=== PATIENT | female | born 1995 | race Caucasian/White ===

== ENCOUNTER 2023-04-05 10:54 | Outpatient (CLI) | payer BC, SELFPAY | END 2023-04-05 10:55 | disposition home or self-care (01) | PROVIDERS: Visit Provider Obstetrics & Gynecology | DX: Z36.89 Encounter for other specified antenatal screening (principal); O36.0130 Maternal care for anti-D [Rh] antibodies, third trimester, not applicable or unspecified; Z3A.00 Weeks of gestation of pregnancy not specified | CPT/HCPCS: 36415; 86850; 86900; 86901 ==

== ENCOUNTER 2023-08-03 10:53 | Outpatient (CLI) | payer BC, SELFPAY ==
[2023-08-03 12:24] LABS: Hemoglobin 11.5 g/dL (12.0-15.0); Mean Corpuscular HGB Conc 31.1 g/dl (32-36); Mean Corpuscular Hemoglobin 27.2 pg (26-34); Mean Corpuscular Volume 87.5 fl (80-100); Mean Platelet Volume 9.4 fl (7.4-10.4); Platelet Count Result 205 k/mm3 (150-375); Red Blood Count 4.23 M/mm3 (4.2-5.4); Red Cell Distribution Width 14.2 % (11.5-14.5); White Blood Count 5.7 K/mm3 (4.5-10.0)
[2023-08-03 14:09] LABS: Rapid Plasma Reagin Reactive (NonReactive)
[2023-08-06 16:07] LABS: Treponema pallidum Ab FTA ABS Nonreactive (Nonreactive)
[2023-08-23 13:01] LABS: Reference Lab Test Result Reactive
== END 2023-08-03 10:54 | disposition home or self-care (01) ==
PROVIDERS: Visit Provider Obstetrics & Gynecology
DX: Z34.93 Encounter for supervision of normal pregnancy, unspecified, third trimester (principal); Z3A.00 Weeks of gestation of pregnancy not specified
CPT/HCPCS: 36415; 85027; 86592; 86593; 86780; 86850; 86900; 86901

== ENCOUNTER 2023-08-04 05:33 | Inpatient (IN) | payer BC, SELFPAY ==
[2023-08-04] VITALS (50 sets, daily range): BP systolic 94–124; BP diastolic 49–76; PULSE 48–86; RESP 12–18; TEMP 36.3–36.6; O2SAT 98–100; BMI 38.5
[2023-08-04] MEDS: LACTATED RINGERS 1,000 ML 125 ML IV CONT ×2 (06:02→06:55)
--- NOTE | 2023-08-04 06:26 | LDADM ---
This patient, Megan He, was admitted to Labor/Delivery/Recovery 120 on 08/04/23 at 05:33. Plans for labor, pain management and were discussed with patient. Patient/family oriented to hospital policies and general routines including ID bracelet, bed and alarms, visiting hours, pain management, procedures, bathroom and other care routines, personal items, smoking policy, room service/diet and guest tray routines, security routines, and visiting hours. Patient/Family are encouraged to report perceived risks to care and to ask questions if they do not understand what they are told or what they should do. See OBIX for further documentation.
--- NOTE | 2023-08-04 07:08 | WPDANESEPPF ---
Anes - Initial Pre Proc Eval Procedure: Operation Date: 08/04/23 07:30 Proposed Procedures p Repeat Section - Thalia De La Cruz MD Date/Time: 08/04/23 07:08 Surgeon: Thalia De La Cruz MD Pre Op Diagnosis: C/S Patient Data Age: 28 Gender: F Height: 1.57 m Weight: 95.5 kg Last Vital Signs Pulse 69 08/04/23 07:06 BP 122/69 08/04/23 07:06 O2 Del Method Room Air 08/04/23 06:23 Allergies Allergy/AdvReac Type Severity Reaction Status Date / Time latex Allergy Blister Verified 08/04/23 06:05 morphine Allergy Blister Verified 08/04/23 06:04 Patient hx anesthesia problems: none Family hx anesthesia problems: none Results Review: All pre-operative results and documents have been reviewed as part of the pre-operative evaluation. [facility] Past Medical History Medical History (Updated 08/04/23 @ 07:09 by Guy Pickering MD) Breech presentation Latex allergy Obesity Surgical History Surgical History (Updated 08/04/23 @ 07:09 by Guy Pickering MD) History of section Hx of tonsillectomy Social History Social History Smoking status: Former smoker Tobacco type: cigarettes and e-cigarettes/vaping Substance use: never Lack of Transportation: No Lack of Food: Never True Current Housing: I Have Housing Concerned About Future Housing: No Difficulty Paying Gas/Electric Bills: No Difficulty Paying for Meds: No Currently Unemployed: No Education: High School Diploma/GED Difficulty w/ Childcare or Family Care: No Spiritual care concerns: No Anes - Eval Final PreProcedure Day of Procedure 08/04/23 07:08 Patient weight: obese Heart: regular rate and rhythm Lungs: clear to auscultation Airway: Mallampati scale class II Neurological: alert and oriented Last oral intake: >/= 8 hours ASA classification: II Emergent: no Anesthetic plan: proceed Anesthesia type and monitoring: regional spinal and standard monitoring Results Review: All pre-operative results and documents have been reviewed as part of the pre-operative evaluation. Informed Consent: The patient's anesthetic plan of spinal with no morphine and its attendant risks and benefits were discussed with the patient/family/POA. Questions were solicited and answers provided to the satisfaction of the patient/family/POA.
--- NOTE | 2023-08-04 07:23 | PM.IMHP ---
H&P: HPI History of Present Illness Date/Time: 08/04/23 07:23 Chief Complaint: Term , previous Narrative: this patient is a 28-year-old multipara at term with a previous . We have agreed to perform repeat . She understands there is risk to the procedure. She understands the procedure in detail. She understands there is injury risk and injuries can result in hospitalization, more surgery, severe illness. She understands risk of hemorrhage and infection. She denies any nausea, vomiting, fever, chills. She denies any chest pain shortness of breath. She denies any contractions, loss of fluid, vaginal bleeding. Review of Systems Review of Systems: All systems reviewed & are unremarkable except as noted in HPI and below Constitutional: Constitutional: Denies chills, Denies fatigue, Denies fever(s) and Denies weakness Eyes: Eyes: Denies blurry vision, Denies change in vision, Denies loss of peripheral vision, Denies loss of vision, Denies other visual disturbances and Denies eye pain ENT: Denies vertigo, Denies dizziness, Denies hearing loss, Denies mouth pain, Denies nasal obstruction, Denies neck mass and Denies neck pain Cardiovascular: Cardiovascular: Denies chest pain, Denies diaphoresis, Denies syncope, Denies leg edema and Denies dyspnea Respiratory: Respiratory: Denies chest congestion, Denies cough, Denies hemoptysis, Denies dyspnea and Denies wheezing Gastrointestinal: Gastrointestinal: Denies abdominal pain, Denies constipation, Denies diarrhea, Denies nausea and Denies vomiting Genitourinary: Genitourinary: Denies hematuria, Denies change in libido, Denies nocturia, Denies genital lesions, Denies flank pain and Denies urinary urgency Musculoskeletal: Musculoskeletal: Denies abnormal gait, Denies back pain, Denies myalgias, Denies arthralgias, Denies joint swelling, Denies muscle weakness and Denies neck pain Integumentary/Breasts: Skin/Breast: Denies swelling, Denies breast pain, Denies breast mass, Denies dry skin, Denies nipple discharge, Denies unusual bruising and Denies jaundice Neurologic: Denies Neuro-related abnormal movements, Denies Abnormal speech present, Denies abnormal gait, Denies behavioral changes, Denies confusion, Denies vertigo, Denies dizziness, Denies syncope, Denies loss of vision, Denies memory loss, Denies convulsions and Denies weakness Psychiatric: Psychiatric: Denies abnormal sleep pattern, Denies behavioral changes, Denies change in libido, Denies confusion, Denies depression, Denies anhedonia and Denies memory loss Endocrine: Endocrine: Reports no additional endocrine complaints, Denies change in libido and Denies fatigue Hematologic/Lymphatic: Hematologic/Lymphatic: Reports no additional hematologic/lymphatic complaints Allergic/Immunologic: Allergic/Immunologic: Reports no additional allergic/immunologic complaints and Denies wheezing PMFSH Past Medical History Medical History (Updated 08/04/23 @ 07:25 by Thalia De La Cruz MD) Breech presentation Latex allergy Obesity Surgical History Surgical History (Updated 08/04/23 @ 07:25 by Thalia De La Cruz MD) History of section Hx of tonsillectomy Social History Social History Smoking status: Former smoker Tobacco type: cigarettes and e-cigarettes/vaping Substance use: never Lack of Transportation: No Lack of Food: Never True Current Housing: I Have Housing Concerned About Future Housing: No Difficulty Paying Gas/Electric Bills: No Difficulty Paying for Meds: No Currently Unemployed: No Education: High School Diploma/GED Difficulty w/ Childcare or Family Care: No Spiritual care concerns: No Meds Home Medications and Allergies Allergies Allergy/AdvReac Type Severity Reaction Status Date / Time latex Allergy Blister Verified 08/04/23 06:05 morphine Allergy Blister Verified 08/04/23 06:04 Vital Signs Vit
--- NOTE | 2023-08-04 07:27 | WPDHPUPDATE1 ---
History and Physical Update Update Date/Time: 08/04/23 07:27 History and Physical has been reviewed, including an updated exam of the patient. There are NO changes in the patient's condition. Risks, benefits, and alternatives have been discussed and questions answered. Patient agrees to proceed with procedure.
[2023-08-04] MEDS: ceFAZolin 2 GM/D5W 50 ML 2 GM/50 ML BAG IVPB (07:30)
[2023-08-04] MEDS: ONDANSETRON INJ 4 MG/2 ML VIAL IV PUSH (07:50)
--- NOTE | 2023-08-04 09:26 | W.PM.PROC2 ---
Procedure Note - Detailed Date of Procedure 08/04/23 Pre-op Diagnosis Previous C/S Post-op Diagnosis Same Procedure Performed Low-transverse section Surgeon Thalia De La Cruz MD Anesthesia Spinal Findings Normal gestational maternal anatomy, average size infant, normal Apgars. Description of Procedure The patient was taken the operating room. She was prepped and draped in dorsal supine position with a leftward tilt. This was done after spinal anesthetic was applied. A low-transverse skin incision was made and carried down till of the fascia with the knife. The fascial incision was made with the knife. The fascial incision was extended laterally with López scissors. The fascia was tented upward superiorly and inferiorly the rectus muscles were dissected off bluntly. The rectus muscles were the midline. The preperitoneal fat and peritoneum were dissected open bluntly at the superior aspect of the rectus muscles. The peritoneal incision was extended superior and inferior with good position of bladder. The uterine incision was made with a scalpel down to the level of the amniotic cavity. The amniotic cavity was entered bluntly. The was delivered. The cord was clamped and cut and the infant was handed off to waiting pediatric staff. Cord bloods were obtained. The placenta was removed manually. The uterus was exteriorized. The uterus was cleared of all clots, debris and membranes. The uterus was closed in 0 Vicryl running lock fashion. An imbricating over a was placed along the incision line as well. The uterus was returned to the abdomen. The gutters were cleared of all clots and debris. The fascia was closed with 0 Vicryl running fashion. The subcutaneous tissue was irrigated pinpoint bleeders were cauterized. The skin was closed with subcuticular absorbable dorothy. The skin incision line was covered with glue. The patient tolerated the procedure well. She has taken recovery room in stable condition. Sponge lap and needle counts were correct x2. Estimated Blood Loss -895.0 Urine Output -150.0 Complications No immediate complications Condition Stable Disposition PACU
[2023-08-04] MEDS: OXYTOCIN 30 UNITS/NS 500 ML 30 UNITS/500 ML BAG 125 UNITS IV CONT (09:34)
[2023-08-04] MEDS: fentaNYL CITRATE INJ (*CRX) 100 MCG/2 ML VIAL 25 MCG IV PUSH ×3 (10:01→11:01)
[2023-08-04] MEDS: LIDOCAINE 5% PATCH 1 PATCH TRANSDERM (10:15)
[2023-08-04] MEDS: HYDROcodone/acetaminophen (*CRX) 10-325 MG TABLET 1 TAB PO ×2 (11:49→17:44)
[2023-08-04] MEDS: FENTANYL 600MCG/NS30MLPCA(*CRX 600 MCG/30 ML PCA.VIAL IV CONT (12:13)
[2023-08-04] MEDS: DEXTROSE 5%/0.45% SOD CHL 1,000 ML 125 ML IV CONT (12:24)
[2023-08-04] MEDS: KETOROLAC 30 MG/ML VIAL (*BKC) IV PUSH ×2 (12:24→19:00)
--- NOTE | 2023-08-04 14:56 | PC.NURSE ---
1205 PT's mother called to unit and demanded to talk to charge nurse. She aggressively spoke to this RN and telling her daughter is in pain and we are not doing anything. This RN told her that i have her pain meds in my hand and was on the way to her room. She raised her voice and tells she is not playing that game, and continue talking aggressively. This RN told her to let me go take care of her. She threatens that we have 10 min to take care of her pain and hang up. She also called 2nd floor field secretary and veterinary assistant with aggressive manner and made threatening comment to come to the hospital. This RN went to PT room and started ASSISTANT PRESS OPERATOR OFFSET, also told her mother called to desk. Pt was very upset and states she told her mother not to call because we just gave pain medication pill. Pt was very apologetic and understands we were trying to take care of her pain
[2023-08-04] MEDS: DOCUSATE SODIUM 100 MG CAPSULE PO (19:00)
[2023-08-04] MEDS: POLYSACCHARIDE IRON COMPLEX 150 MG CAPSULE PO (19:00)
[2023-08-04] MEDS: KCL 20 MEQ/D5/0.45% SOD CHL 1,000 ML 125 ML IV CONT (21:00)
[2023-08-05 00:12] VITALS: RESP 16
[2023-08-05] MEDS: HYDROcodone/acetaminophen (*CRX) 10-325 MG TABLET 1 TAB PO ×6 (00:13→21:14)
[2023-08-05] MEDS: KETOROLAC 30 MG/ML VIAL (*BKC) IV PUSH (01:18)
--- NOTE | 2023-08-05 01:59 | OBPPTRN ---
08/04/2023 at 2323 Patient in wheelchair transferred to post room #291. Support person present. Patient and her significant other oriented to unit, room, information board, rooming in, admission packet and security measures. Patient and her significant other verbalizes understanding.
[2023-08-05] MEDS: SIMETHICONE 80 MG TAB.CHEW PO ×3 (03:33→21:14)
[2023-08-05 03:45] VITALS: BP 104/66; PULSE 80; RESP 16; TEMP 36.6
[2023-08-05 05:19] LABS: Basophils Percent Auto 0.3 % (0.2-1.2); Eosinophils Percent Auto 0.5 % (0-4.4); Hematocrit 30.9 % (37.0-47.0); Hemoglobin 9.6 g/dL (12.0-15.0); Immature Granulocyte Absolute 0.05 K/mm3 (0.00-0.031); Immature Granulocyte Percent A 0.6 % (0-0.5); Lymphocytes Absolute Auto 0.98 K/mm3 (0.9-3.2); Lymphocytes Percent Auto 12.3 % (18.3-44.2); Mean Corpuscular HGB Conc 31.1 g/dl (32-36); Mean Corpuscular Hemoglobin 27.3 pg (26-34); Mean Corpuscular Volume 87.8 fl (80-100); Mean Platelet Volume 9.2 fl (7.4-10.4); Monocytes Absolute Auto 0.5 K/mm3 (0.1-0.6); Monocytes Percent Auto 5.9 % (2.6-8.5); Neutrophils Absolute Auto 6.4 K/mm3 (1.3-6.7); Neutrophils Percent Auto 80.4 % (45.5-73.1); Platelet Count Result 174 k/mm3 (150-375); Red Blood Count 3.52 M/mm3 (4.2-5.4); Red Cell Distribution Width 14.5 % (11.5-14.5)
[2023-08-05 07:20] VITALS: BP 116/69; PULSE 72; RESP 18; TEMP 36.9; O2SAT 99
[2023-08-05] MEDS: POLYSACCHARIDE IRON COMPLEX 150 MG CAPSULE PO ×2 (07:54→17:24)
[2023-08-05] MEDS: DOCUSATE SODIUM 100 MG CAPSULE PO ×2 (07:54→17:25)
[2023-08-05] MEDS: MULTIVIT/MIN/PREN/FOL AC/IRON TABLET 1 TAB PO (07:55)
[2023-08-05] MEDS: IBUPROFEN 600 MG TABLET PO ×2 (07:56→17:25)
--- NOTE | 2023-08-05 11:21 | WPDANLDPN2 ---
Anes-Prog Note L&D Date/Time: 08/05/23 11:21 Comfortable throughout: section Neuraxial method: spinal Epidural/Spinal procedure site: clean & non-tender Neuro status: Neuro function grossly intact. Cardiovascular status: normal Respiratory status: normal Airway patency: baseline Mental status: baseline Post-Op hydration status: normal Vital Signs: Last Vital Signs Temp 98 F 08/05/23 03:45 Pulse 80 08/05/23 03:45 Resp 16 08/05/23 03:45 BP 104/66 08/05/23 03:45 Pulse Ox 98 08/04/23 23:25 O2 Del Method Room Air 08/05/23 07:56 Pain score (VAS): 2 I/O: Intake & Output 08/04/23 08/05/23 08/05/23 23:59 07:59 15:59 Intake Total 800 Output Total 1600 700 Balance -1600 100 Post-procedural complaints: pruritis mild, no treatment Patient feedback: Patient satisfied with anesthetic care.
--- NOTE | 2023-08-05 11:21 | WPDANLDNPN2 ---
Anes-Prog Note L&D-Neuraxial Date/Time: 08/05/23 11:21 Neuraxial medications: intrathecal PF morphine Opiod-related complaints: pruritis mild, no treatment Patient feedback: Patient satisfied with post-operative pain management.
[2023-08-05] MEDS: LIDOCAINE 5% PATCH 1 PATCH TRANSDERM (12:01)
--- NOTE | 2023-08-05 12:53 | P.PNOB_ITS ---
OB - PN: Subj Subjective Date/time seen: 08/05/23 12:53 OB - PN: Obj Data Labs 08/05/23 04:59 Labs: Laboratory Results - last 24 hr 08/05/23 04:59 WBC 8.0 RBC 3.52 L Hgb 9.6 L Hct 30.9 L MCV 87.8 MCH 27.3 MCHC 31.1 L RDW 14.5 Plt Count 174 MPV 9.2 Immature Gran % (Auto) 0.6 H Neut % (Auto) 80.4 H Lymph % (Auto) 12.3 L [place] % (Auto) 5.9 Eos % (Auto) 0.5 Baso % (Auto) 0.3 Lymph # (Auto) 0.98 [place] # (Auto) 0.5 Eos # (Auto) 0.0 Baso # (Auto) 0.0 Abs Immat Gran (auto) 0.05 H Absolute Neuts (auto) 6.4 Absolute Nucleated RBC 0.0 Nucleated RBC % 0.0 OB - PN A/P Time Spent With Patient Time: Total time spent is greater than 50% in coordination of care (as documented) at patient's floor/unit and/or counseling patient: Time with patient: 15 - 25 minutes Exam Const: General: cooperative, healthy appearing, comfortable and no acute distress Resp: Auscultation: no crackles, no rales, no rhonchi and no wheezes Cardio: Rhythm: regular rhythm Heart sounds: no click and no murmurs GI: Inspection: non-distended Auscultation: normal bowel sounds Other: Incisions - CDI Extrem: General: normal to inspection, no pedal edema and no calf tenderness
[2023-08-05 21:00] VITALS: BP 119/72; PULSE 76; RESP 16; TEMP 36; O2SAT 97
[2023-08-06] MEDS: LIDOCAINE 5% PATCH 1 PATCH TRANSDERM (00:30)
[2023-08-06] MEDS: HYDROcodone/acetaminophen (*CRX) 5-325 MG TABLET 1 TAB PO (03:49)
[2023-08-06] MEDS: IBUPROFEN 600 MG TABLET PO ×2 (03:49→12:57)
[2023-08-06] MEDS: SIMETHICONE 80 MG TAB.CHEW PO ×2 (03:49→10:10)
[2023-08-06] MEDS: DOCUSATE SODIUM 100 MG CAPSULE PO (10:09)
[2023-08-06] MEDS: MULTIVIT/MIN/PREN/FOL AC/IRON TABLET 1 TAB PO (10:09)
[2023-08-06] MEDS: POLYSACCHARIDE IRON COMPLEX 150 MG CAPSULE PO (10:09)
[2023-08-06 10:10] VITALS: BP 116/70; PULSE 75; RESP 18; TEMP 36.3; O2SAT 99
[2023-08-06] MEDS: HYDROcodone/acetaminophen (*CRX) 10-325 MG TABLET 1 TAB PO ×2 (10:10→12:57)
--- NOTE | 2023-08-06 11:22 | P.DS_ITS ---
DS: Admitting Diagnosis Discharge Date August 06, 2023 Admitting Diagnosis term , previous DS: Discharge Diagnosis Discharge Diagnosis (1) delivery delivered: Code(s): O82 - Encounter for delivery without indication Status: Acute OB - DS: Summary OB Procedures : None OB Procedures Intrapartum: OB Procedures: : None Peripartum Data Procedures: Procedures Operation Date: 08/04/23 07:30 Actual Procedure Side Surgeon p Repeat Section Not Applicable Thalia De La Cruz MD Time Spent with Patient Time attestation: Total time spent providing and/or coordinating discharge services: Discharge Plan Discharge Discharging Clinician: Thalia De La Cruz Patient Disposition: Home, Self-Care Activity: pelvic rest Diet: regular Patient Instructions: Antibiotic Form Stand Alone Forms: General Discharge Information Follow-up/Referrals: Thalia De La Cruz MD [Physician] - Date of admission: 08/04/23 05:33 Primary Care Provider: PHYSICIAN,ENVIRONMENTAL EMERGENCIES PLANNER Admitting Provider: Thalia De La Cruz Attending physician on admission: Thalia De La Cruz Condition: Stable
--- NOTE | 2023-08-06 11:22 | PM.OBPNVD ---
OB - PN: Subj Subjective Date/time seen: 08/06/23 11:22 Patient comments: no complaints, pain well controlled, incisional pain, tolerating diet and flatus present OB - PN: Obj Data Labs 08/05/23 04:59 OB - PN A/P Plan day: 2 Plan: routine care Comments: POD#2 LTCS - no problems, Time Spent With Patient Time: Total time spent is greater than 50% in coordination of care (as documented) at patient's floor/unit and/or counseling patient: Exam Const: General: comfortable, no acute distress and alert Resp: Effort & Inspection: normal respiratory effort Auscultation: no crackles, no rales and no rhonchi Cardio: Rate: regular rate Heart sounds: no click, no murmurs and no rubs GI: Inspection: non-distended Auscultation: normal bowel sounds Other: Incision - CDI Extrem: General: normal to inspection, no pedal edema and no calf tenderness
[2023-08-07 08:35] VITALS: BP 115/69; PULSE 79; RESP 18; TEMP 36.9; O2SAT 98
== END 2023-08-06 13:07 | disposition home or self-care (01) | DRG 788 ==
LOC: ANHLDR 05:37 → ANHOBPP 11:32 → ANHOB2 23:46
PROVIDERS: Admitting Provider Obstetrics & Gynecology; Visit Provider Obstetrics & Gynecology
PROC: 10D00Z1 Extraction of Products of Conception, Low, Open Approach (ICD-10-PCS; CPT 59514; principal; 2023-08-04 07:30)
DX: O34.211 Maternal care for low transverse scar from previous cesarean delivery (principal); Z37.0 Single live birth; Z3A.39 39 weeks gestation of pregnancy; O99.73 Diseases of the skin and subcutaneous tissue complicating the puerperium; L29.9 Pruritus, unspecified
CPT/HCPCS: 36415; 85025; A9270; J0690; J1885; J2371; J2405; J2590; J3010; J3480; J7120